=== PATIENT | male | born 1980 | race Two or more races ===

== ENCOUNTER 2016-12-03 20:54 | Inpatient (IN) | payer MEDICAID ==
[~2016-12-03] VITALS: Ht 172.7 cm; Wt 101.0 kg
[2016-12-03 22:31] LABS: Basophils # (auto) 0 uL; Basophils % (auto) 0.4 % (0.0-2.0); DEFINITIVE VIEW TRANSMISSION; Eosinophils # (auto) 0 uL; Eosinophils % (auto) 0.2 % (0.0-7.0); Hematocrit 44.6 % (41.0-53.0); Hemoglobin 14.5 g/dL (13.5-17.5); Lymphocytes # (auto) 1.7 uL; Lymphocytes % (auto) 15.2 % (10.0-50.0); Mean Corpuscular Hemoglobin 26.8 pg (28.0-32.0); Mean Corpuscular Hgb Conc. 32.6 g/dL (32.0-36.0); Mean Corpuscular Volume 82.2 fL (80.0-100.0); Mean Platelet Volume 8.8 fL (7.4-10.4); Monocytes # (auto) 1.4 uL; Monocytes % (auto) 12.3 % (0.0-12.0); Neutrophils % (auto) 71.9 % (37.0-80.0); Platelet Count (auto) 192 10^3/uL (140-450); Red Cell Distribution Width 16.2 % (11.6-16.0); White Blood Cell 11.1 10^3/uL (4.4-10.8)
[2016-12-03 22:45] LABS: Lactic Acid 2.5 mmol/L (0.4-2.0)
[2016-12-03 22:51] LABS: REFLEX LACTIC ACID YES OR NO YES
[2016-12-03 22:57] LABS: Albumin 2.6 g/dL (3.4-5.0); BUN/Creatinine Ratio 14.4; Bilirubin, Total 1.5 mg/dL (0.2-1.0); Calcium 8.3 mg/dL (8.5-10.1); Potassium 3.2 mmol/L (3.5-5.1); Total Protein 7.8 g/dL (6.4-8.2)
[2016-12-03 23:35] LABS: Urine RBC None Seen /hpf (0 - 3)
[2016-12-03 23:40] LABS: Urine Bilirubin Negative (Negative); Urine Blood Negative /uL (Negative); Urine Color Yellow (Yellow); Urine Glucose Normal (Normal); Urine Ketone Negative (Negative); Urine Nitrite Negative (Negative); Urine Urobilinogen Normal (Negative)
[2016-12-04] MEDS ORDERED: cefTRIAXone 1GM/50ML D5W 50 ML IV ONE (00:15)
[2016-12-04] MEDS ORDERED: HYDROmorphone HCL 2 MG/ML VL IV ONE (00:15)
[2016-12-04] MEDS ORDERED: VANCOMYCIN 1GM/250ML D5W 250 ML IV ONE (00:15)
[2016-12-04] MEDS ORDERED: POTASSIUM CHL 20 Meq TABLET PO ONE (06:30)
[2016-12-04] MEDS ORDERED: FUROSEMIDE 20 MG/2 ML VIAL IV ONE (07:00)
[2016-12-04] MEDS ORDERED: MORPHINE SULF INJ 2 MG/ML SYRINGE 1ML IV PRN (07:00)
[2016-12-04] MEDS ORDERED: NITROGLYCERIN 0.4 MG SL TAB SL PRN (07:00)
[2016-12-04] MEDS ORDERED: ACETAMINOPHEN 325 MG TAB PO PRN (07:00)
[2016-12-04] MEDS ORDERED: ONDANSETRON HCL 4 MG/2 ML VIAL IV PRN (07:00)
[2016-12-04 08:13] VITALS: BP 125/74
[2016-12-04 08:39] LABS: B-Type Natriuretic Peptide 285.43 pg/mL (0-100)
[2016-12-04] MEDS: ENOXAPARIN SOD 40 MG/0.4 ML SYRINGE SC SCH (09:41)
[2016-12-04] MEDS: FUROSEMIDE 40 MG TAB PO SCH (09:45)
[2016-12-04] MEDS: BENAZEPRIL HCL 10 MG TAB PO SCH (09:45)
[2016-12-04] MEDS: FAMOTIDINE 20 MG TAB PO SCH ×2 (09:45→21:51)
[2016-12-04] MEDS: MORPHINE SULF INJ 2 MG/ML SYRINGE 1ML IV PRN ×2 (09:48→21:51)
[2016-12-04] MEDS ORDERED: VANCOMYCIN PER PHARMACY 0 MG IV SCH (10:00)
[2016-12-04] MEDS ORDERED: POTASSIUM CHL 10 Meq TABLET PO SCH (10:00)
[2016-12-04] MEDS: VANCOMYCIN 1,250 MG in D5W 5% 250 ML IV SCH ×2 (10:03→21:51)
[2016-12-04] MEDS: HYDROcodone-ACET 5/325MG TAB PO PRN (12:00)
[2016-12-04 12:33] VITALS: BP 111/73
[2016-12-04] MEDS ORDERED: LORazepam 2MG/ML-1ML VIAL IV PRN ×2 (14:00→18:15)
[2016-12-04 16:45] VITALS: BP 127/82
[2016-12-04 21:30] VITALS: BP 116/71
[2016-12-04] MEDS: cefTRIAXone 1GM/50ML D5W 50 ML IV SCH (23:39)
[2016-12-05] VITALS (7 sets, daily range): BP systolic 115–126; BP diastolic 73–88
[2016-12-05] MEDS: MORPHINE SULF INJ 2 MG/ML SYRINGE 1ML IV PRN ×5 (01:39→22:16)
[2016-12-05 05:45] LABS: Basophils # (auto) 0.1 uL; Basophils % (auto) 0.9 % (0.0-2.0); DEFINITIVE VIEW TRANSMISSION; Eosinophils # (auto) 0.1 uL; Eosinophils % (auto) 1.3 % (0.0-7.0); Hematocrit 41.9 % (41.0-53.0); Hemoglobin 13.5 g/dL (13.5-17.5); Lymphocytes # (auto) 1.5 uL; Mean Corpuscular Hemoglobin 26.5 pg (28.0-32.0); Mean Corpuscular Hgb Conc. 32.3 g/dL (32.0-36.0); Mean Corpuscular Volume 82.1 fL (80.0-100.0); Mean Platelet Volume 8.9 fL (7.4-10.4); Monocytes % (auto) 15.1 % (0.0-12.0); Neutrophils # (auto) 4.3 uL; Neutrophils % (auto) 61.7 % (37.0-80.0); Platelet Count (auto) 159 10^3/uL (140-450); Red Cell Distribution Width 16.4 % (11.6-16.0); White Blood Cell 6.9 10^3/uL (4.4-10.8)
[2016-12-05 06:07] LABS: Albumin 2.3 g/dL (3.4-5.0); BUN/Creatinine Ratio 13.8; Potassium 3.4 mmol/L (3.5-5.1)
[2016-12-05 06:10] LABS: Bilirubin, Total 1.2 mg/dL (0.2-1.0); Total Protein 7.1 g/dL (6.4-8.2)
[2016-12-05] MEDS: FAMOTIDINE 20 MG TAB PO SCH ×2 (09:56→22:17)
[2016-12-05] MEDS: BENAZEPRIL HCL 10 MG TAB PO SCH (09:56)
[2016-12-05] MEDS: FUROSEMIDE 40 MG TAB PO SCH (09:56)
[2016-12-05] MEDS: ENOXAPARIN SOD 40 MG/0.4 ML SYRINGE SC SCH (09:58)
[2016-12-05] MEDS ORDERED: POTASSIUM CHL 10 Meq TABLET PO ONE (10:30)
[2016-12-05] MEDS: POTASSIUM CHL 10 Meq TABLET PO SCH (10:53)
[2016-12-05] MEDS: CLINDAMYCIN 600MG IV 50 ML IV SCH ×2 (14:23→22:16)
[2016-12-05] MEDS: HYDROcodone-ACET 5/325MG TAB PO PRN (14:23)
[2016-12-05] MEDS: MULTIPLE VITAMINS W/ MINERALS TAB PO SCH (18:00)
[2016-12-05] MEDS: ASCORBIC ACID 500 MG TAB PO SCH (22:16)
[2016-12-05] MEDS: cefTRIAXone 1GM/50ML D5W 50 ML IV SCH (23:42)
[2016-12-06] MEDS: MORPHINE SULF INJ 2 MG/ML SYRINGE 1ML IV PRN ×5 (02:14→21:53)
[2016-12-06 05:27] VITALS: BP 118/74
[2016-12-06] MEDS: CLINDAMYCIN 600MG IV 50 ML IV SCH ×3 (05:42→21:37)
[2016-12-06 08:00] VITALS: BP 142/81
[2016-12-06 08:42] VITALS: BP 142/81
[2016-12-06] MEDS: ENOXAPARIN SOD 40 MG/0.4 ML SYRINGE SC SCH (10:00)
[2016-12-06] MEDS: FAMOTIDINE 20 MG TAB PO SCH ×2 (10:25→21:37)
[2016-12-06] MEDS: ASCORBIC ACID 500 MG TAB PO SCH ×2 (10:25→21:37)
[2016-12-06] MEDS: BENAZEPRIL HCL 10 MG TAB PO SCH (10:25)
[2016-12-06] MEDS: POTASSIUM CHL 10 Meq TABLET PO SCH (10:25)
[2016-12-06] MEDS: MULTIPLE VITAMINS W/ MINERALS TAB PO SCH (10:25)
[2016-12-06] MEDS: FUROSEMIDE 40 MG TAB PO SCH (10:26)
[2016-12-06] MEDS ORDERED: LEVOFLOXACIN 500MG 100 ML IV ONE (10:30)
[2016-12-06 11:28] LABS: BUN/Creatinine Ratio 14.8; Calcium 8.3 mg/dL (8.5-10.1); Potassium 3.7 mmol/L (3.5-5.1)
[2016-12-06 13:17] VITALS: BP 137/77
[2016-12-06 17:30] VITALS: BP 140/78
[2016-12-06] MEDS: HYDROcodone-ACET 5/325MG TAB PO PRN (18:11)
[2016-12-06 22:00] VITALS: BP 96/65
[2016-12-07] MEDS: MORPHINE SULF INJ 2 MG/ML SYRINGE 1ML IV PRN (03:54)
[2016-12-07 04:50] VITALS: BP 138/85
[2016-12-07 04:59] LABS: Basophils # (auto) 0 uL; Basophils % (auto) 0.4 % (0.0-2.0); DEFINITIVE VIEW TRANSMISSION; Eosinophils # (auto) 0.1 uL; Eosinophils % (auto) 1.1 % (0.0-7.0); Hematocrit 43.5 % (41.0-53.0); Lymphocytes # (auto) 1.4 uL; Lymphocytes % (auto) 20.1 % (10.0-50.0); Mean Corpuscular Hemoglobin 26.5 pg (28.0-32.0); Mean Corpuscular Hgb Conc. 32.2 g/dL (32.0-36.0); Mean Corpuscular Volume 82.4 fL (80.0-100.0); Mean Platelet Volume 8.7 fL (7.4-10.4); Monocytes # (auto) 1.1 uL; Monocytes % (auto) 15.7 % (0.0-12.0); Neutrophils # (auto) 4.5 uL; Neutrophils % (auto) 62.7 % (37.0-80.0); Platelet Count (auto) 179 10^3/uL (140-450); Red Cell Distribution Width 16.8 % (11.6-16.0); White Blood Cell 7.2 10^3/uL (4.4-10.8)
[2016-12-07 05:08] LABS: BUN/Creatinine Ratio 14.1; Calcium 8.2 mg/dL (8.5-10.1); Potassium 3.8 mmol/L (3.5-5.1)
[2016-12-07] MEDS: CLINDAMYCIN 600MG IV 50 ML IV SCH (05:23)
[2016-12-07] MEDS: HYDROcodone-ACET 5/325MG TAB PO PRN (05:23)
[2016-12-07 07:27] VITALS: BP 135/81
[2016-12-07] MEDS ORDERED: FURO40TA4 PO (08:37)
[2016-12-07] MEDS ORDERED: POTA-167 PO (08:37)
[2016-12-07] MEDS ORDERED: ASCO500T11 PO (08:37)
[2016-12-07] MEDS ORDERED: BEN10T PO (08:37)
[2016-12-07] MEDS ORDERED: LEVO750T64 PO (08:37)
[2016-12-07] MEDS ORDERED: LEVOFLOXACIN 750MG 150 ML IV SCH (10:00)
== END 2016-12-07 10:10 | disposition home or self-care (01) | DRG 383 ==
LOC: EDBD 20:54 → ER 20:57 → TELE 20:58 → TELE-E-ADS 12-04 08:09 → TELE-WESTW 12-04 11:52
PROVIDERS: ADMIT Internal Medicine; ATTEND Internal Medicine
DX: L03.116 Cellulitis of left lower limb (principal); E43 Unspecified severe protein-calorie malnutrition; I50.43 Acute on chronic combined systolic (congestive) and diastolic (congestive) heart failure; R65.10 Systemic inflammatory response syndrome (SIRS) of non-infectious origin without acute organ dysfunction; I42.7 Cardiomyopathy due to drug and external agent; I11.0 Hypertensive heart disease with heart failure; I27.2 Other secondary pulmonary hypertension; R56.9 Unspecified convulsions; L03.115 Cellulitis of right lower limb; B19.20 Unspecified viral hepatitis C without hepatic coma; F15.90 Other stimulant use, unspecified, uncomplicated; F17.210 Nicotine dependence, cigarettes, uncomplicated; Z91.19 Patient's noncompliance with other medical treatment and regimen; Z88.0 Allergy status to penicillin; Z90.49 Acquired absence of other specified parts of digestive tract; E87.6 Hypokalemia; Z68.33 Body mass index [BMI] 33.0-33.9, adult; D72.829 Elevated white blood cell count, unspecified
CPT/HCPCS: 36415; 70450; 70551; 71010; 76705; 80048; 80053; 80074; 81001; 82962; 83605; 83880; 84484; 85025; 87040; 87070; 87077; 87186; 87205; 93005; 93306; 93970; 94761; 95819; 96365; 96368; 96375; G0434; J0696; J1956; J3490; J7060